=== PATIENT | male | born 1980 | race Caucasian/White ===

== ENCOUNTER 2017-09-28 15:47 | Emergency (ER) | payer BC ==
[~2017-09-28] VITALS: Ht 190.5 cm; Wt 74.8 kg
[2017-09-28 15:50] VITALS: BP_SYST 126
--- NOTE | 2017-09-28 16:10 | NUR ---
Patient to ER bed 2 to gown for evaluation. Side rails up. Report given to CLIFF CANO.
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
--- NOTE | 2017-09-28 16:20 | NUR ---
Dr Bruce at bedside to evaluate patient.
[2017-09-28] MEDS ORDERED: NACL 0.9% 1,000 ML IV ONE (16:22)
[2017-09-28] MEDS ORDERED: DIPH-TET-PERTUS Vaccine 0.5 ML VIAL (ADACEL) I.M. ONE (16:30)
[2017-09-28 16:59] LABS: CALCIUM 9.3 mg/dL (8.4-11.0); CREATININE 0.9 mg/dL (0.55-1.30); POTASSIUM 4.3 mmol/L (3.5-5.1)
[2017-09-28 17:01] LABS: INR 1.1 (0.80-1.20)
[2017-09-28 17:03] LABS: ALBUMIN 4.3 g/dL (3.4-4.8); TOTAL BILIRUBIN 0.4 mg/dL (0.0-1.0)
[2017-09-28 17:05] LABS: BASOPHILS # (AUTO) 0.1 K/uL (0.0-0.2); BASOPHILS % (AUTO) 0.6 % (0.0-2.0); EOSINOPHILS # (AUTO) 0.3 K/uL (0.0-0.4); EOSINOPHILS % (AUTO) 2.8 % (0.0-4.0); HEMATOCRIT 44.9 % (36-54); HEMOGLOBIN 14.8 g/dL (14.0-18.0); LYMPHOCYTES # (AUTO) 2.6 K/uL (1.0-5.5); LYMPHOCYTES % (AUTO) 25.7 % (20.5-51.5); MEAN CORPUSCULAR HEMOGLOBIN 30 pg (27-31); MEAN CORPUSCULAR HGB CONC 33 % (32-36); MEAN CORPUSCULAR VOLUME 91 fL (79.0-98.0); MONOCYTES # (AUTO) 0.6 K/uL (0.0-1.0); MONOCYTES % (AUTO) 5.7 % (1.7-9.3); NEUTROPHILS # (AUTO) 6.5 K/uL (1.8-7.7); NEUTROPHILS % (AUTO) 65.2 % (40.0-70.0); PLATELET COUNT (AUTO) 266 K/uL (130-430); RED BLOOD CELL COUNT(AUTO) 4.96 MIL/uL (4.2-6.2); RED CELL DISTRIBUTION WIDTH 12.1 % (9.0-15.0); WHITE BLOOD COUNT (AUTO) 10.1 K/uL (4.8-10.8)
--- NOTE | 2017-09-28 17:20 | NUR ---
#20 IV started on first attempt to right upper arm, using aseptic technique-patient tolerated well. Opsite applied, IV fluid infusing without difficulty-no redness or swelling noted at site.
[2017-09-28] MEDS ORDERED: KETOROLAC TROMETHAMINE 30 MG VIAL IVP ONE (17:30)
--- NOTE | 2017-09-28 17:30 | NUR ---
Scanner did not recognize IV fluid or Adacel, had to manually enter information.
--- NOTE | 2017-09-28 17:40 | NUR ---
Patient concerned that he is not supposed to have blood thinners. Patient concerned about Toradol injection, patient verified prior to medication administration that he no known allergies, and Toradol was given IVP. Attempted to explain to patient that Toradol in classified as an NSAID and not a blood thinner. Patient reports that he has recently had an infusion of platelets to his elbow, and was not supposed to have blood thinners. Again attempted to explain to patient that Toradol is an NSAID. Infomed patient that I would let MD know. Dr Bruce informed of patient's concern, per MD there is no risk. No additional orders received. Charge nurse notified as well.
[2017-09-28] MEDS ORDERED: BACITRACIN 1 GM OINT TP ONE (18:08)
[2017-09-28] MEDS ORDERED: MORPHINE SULFATE 10 MG/ML VIAL IVP ONE (18:15)
--- NOTE | 2017-09-28 18:25 | NUR ---
Patient resting quietly, vital signs stable, respirations even and unlabored, skin warm and dry to touch. Patient medicated with Morphine 10 mg for c/o pain, unrelieved by Toradol. No adverse reaction to medication noted.
[2017-09-28 19:30] VITALS: BP_SYST 119
--- NOTE | 2017-09-28 19:30 | NUR ---
Patient given written and verbal discharge instructions and verbalizes understanding. ER MD discussed with patient the results and treatment provided. Patient in stable condition. ID arm band removed. IV catheter removed intact and dressing applied, no active bleeding. Rx of [place], Keflex given. Patient educated on pain management and to follow up with PMD. Pain Scale 3. Opportunity for questions provided and answered. Patient left ER ambulating with slow, steady gait in no acute distress with friend at side, who will drive patient home. No adverse reaction noted to medication.
== END 2017-09-28 19:30 | disposition home or self-care (01) ==
LOC: SED 15:47
DX: S60.212A Contusion of left wrist, initial encounter (principal); S50.01XA Contusion of right elbow, initial encounter; S80.211A Abrasion, right knee, initial encounter; S50.311A Abrasion of right elbow, initial encounter; S50.312A Abrasion of left elbow, initial encounter; F17.200 Nicotine dependence, unspecified, uncomplicated; Z90.89 Acquired absence of other organs; V87.8XXA Person injured in other specified noncollision transport accidents involving motor vehicle (traffic), initial encounter; Y93.55 Activity, bike riding; Y92.410 Unspecified street and highway as the place of occurrence of the external cause; Y99.8 Other external cause status
CPT/HCPCS: 36415; 73080; 73110; 80053; 82150; 83690; 85025; 85610; 85730; 90471; 90715; 96361; 96374; 96375; 99285; J1885; J2270; J7030

== ENCOUNTER 2019-07-25 23:54 | Inpatient (IN) | payer BC ==
[~2019-07-25] VITALS: Ht 190.5 cm; Wt 79.0 kg
[2019-07-26] VITALS: BP_SYST 133
[2019-07-26] MEDS ORDERED: CLINDAMYCIN PHOSPHATE 300 MG/2 ML VIAL IM ONE (00:45)
[2019-07-26] MEDS ORDERED: MORPHINE 4 MG/ML INJ. SYRINGE IVP ONE (00:45)
[2019-07-26 01:21] LABS: CALCIUM 8.5 mg/dL (8.4-11.0); CREATININE 0.67 mg/dL (0.55-1.30); POTASSIUM 3.3 mmol/L (3.5-5.1)
[2019-07-26 01:27] LABS: ALBUMIN 3.4 g/dL (3.4-4.8); TOTAL BILIRUBIN 0.3 mg/dL (0.0-1.0)
[2019-07-26] MEDS ORDERED: CLINDAMYCIN PHOSPHATE 300 MG/2 ML VIAL IV ONE (01:30)
[2019-07-26] MEDS ORDERED: IOHEXOL 100 ML IV ONE (01:34)
[2019-07-26 01:38] LABS: HEMOGLOBIN 13.4 g/dL (14.0-18.0)
[2019-07-26 01:48] LABS: BASOPHILS # (AUTO) 0.1 K/uL (0.0-0.2); BASOPHILS % (AUTO) 0.5 % (0.0-2.0); EOSINOPHILS # (AUTO) 0.3 K/uL (0.0-0.4); EOSINOPHILS % (AUTO) 2.9 % (0.0-4.0); HEMATOCRIT 40.3 % (36-54); LYMPHOCYTES # (AUTO) 2.1 K/uL (1.0-5.5); LYMPHOCYTES % (AUTO) 18.4 % (20.5-51.5); MEAN CORPUSCULAR HEMOGLOBIN 30 pg (27-31); MEAN CORPUSCULAR HGB CONC 33 % (32-36); MEAN CORPUSCULAR VOLUME 89 fL (79.0-98.0); MONOCYTES # (AUTO) 0.9 K/uL (0.0-1.0); MONOCYTES % (AUTO) 8.4 % (1.7-9.3); NEUTROPHILS # (AUTO) 7.8 K/uL (1.8-7.7); NEUTROPHILS % (AUTO) 69.8 % (40.0-70.0); PLATELET COUNT (AUTO) 210 K/uL (130-430); RED BLOOD CELL COUNT(AUTO) 4.54 MIL/uL (4.2-6.2); RED CELL DISTRIBUTION WIDTH 13.8 % (9.0-15.0); WHITE BLOOD COUNT (AUTO) 11.2 K/uL (4.8-10.8)
[2019-07-26] MEDS ORDERED: fentaNYL CITRATE/PF 100 MCG/2 ML AMP IVP ONE (03:00)
[2019-07-26] MEDS ORDERED: KCL 20 mEq in D5/0.45NS 1000mL 1,000 ML IV SCH (03:45)
[2019-07-26] MEDS ORDERED: KETOROLAC TROMETHAMINE 60 MG/2 ML VIAL IM ONE (04:00)
[2019-07-26] MEDS: HYDROmorphone 1 MG INJ. 1 MG/ML AMPUL IVP PRN ×2 (04:45→06:21)
[2019-07-26 05:06] VITALS: BP_SYST 134
[2019-07-26] MEDS ORDERED: AMPICILLIN SODIUM/SULBACTAM NA 3 GM in NS 100 ML IV SCH (06:00)
[2019-07-26] MEDS ORDERED: AMPICILLIN SODIUM/SULBACTAM NA 3 GM VIAL ONE (06:34)
[2019-07-26] MEDS ORDERED: HYDROmorphone 2 MG/ML VIAL IVP PRN (07:00)
[2019-07-26 07:51] VITALS: BP_SYST 136
== END 2019-07-26 08:47 | disposition left against medical advice (07) | DRG 159 ==
LOC: SED 23:54 → SMU 07-26 03:49
PROVIDERS: ADMIT Family Medicine; ATTEND Family Medicine
DX: M27.2 Inflammatory conditions of jaws (principal)
CPT/HCPCS: 36415; 70487; 80053; 85025; 87040-TC; 96374; 96375; 99285; J0295; J1170; J2270; J3010; J3490; J7050; Q9967